=== PATIENT | male | born 1970 | race Caucasian/White ===

== ENCOUNTER 2017-10-03 09:34 | Emergency (ER) | payer OTHER, BC ==
[~2017-10-03] VITALS: Ht 172.7 cm; Wt 91.7 kg
[~2017-10-03 09:34] MED LIST: ALL180
[2017-10-03 09:38] VITALS: TEMP 37.2; O2SAT 96; Ht 172.7 cm; Wt 91.7 kg
[2017-10-03] MEDS ORDERED: HYDR12.56 PO (09:52)
[2017-10-03] MEDS ORDERED: LANS15CA6 PO (09:52)
[2017-10-03] MEDS ORDERED: AMOX250C3 PO (09:52)
[2017-10-03 10:02] LABS: PARTIAL THROMBOPLASTIN RATIO 0.9; PROTHROMBIN TIME (PATIENT) 10.4 SECONDS (9.0-12.0)
[2017-10-03 10:10] LABS: BASO % 0.3 %; BASO ABS # 0.02 K/uL (0-0.2); COMPLETE YES; EOS % 3.1 %; HEMATOCRIT 43.3 % (42-52); IG% 1.5 %; LYMPH % 29.6 %; LYMPH ABS # 2.19 K/uL (1.2-3.4); MEAN CELL VOLUME 88.2 fL (80-100); MEAN CORPUSCULAR HEMOGLOBIN 31.2 pg (25-34); MEAN CORPUSCULAR HGB CONC 35.3 g/dl (32-36); MEAN PLATELET VOLUME 10.1 fL (7.4-10.4); MONO % 6.3 %; NEUT % 59.2 %; PLATELET COUNT 170 K/uL (130-400); RED BLOOD COUNT 4.91 M/uL (4.7-6.1); WHITE BLOOD COUNT 7.41 K/uL (4.8-10.8)
--- NOTE | 2017-10-03 10:11 | EMERGENCY ROOM VISIT NOTE ---
History First contact with patient: 09:36 Chief Complaint: CHEST PAIN Stated Complaint: CHEST PRESSURE Nursing Triage Summary: Patient arrived via EMS from his work with complaints of chest pressure 6/10 that started around 0850 and was in the middle of his chest, denies radiation. +SOB, tingling in his hands, lightheaded, little nausea, diaphoretic & clammy when chest pressure was present. Denied LOC. "By the time ems arrived on scene, the chest pressure subsided to almost 0/10. EMS admin. 324mg PO Aspirin. History of Present Illness The patient is a 47 year old male who presents to the Emergency Room via EMS with complaints of chest pain that started this morning around 8:50 AM. Patient states that he was exerting himself when the chest pain started. He describes the chest pain as pressure and tightness, initially 6/10, in the middle of his chest, did not radiate, resolved after rest, currently 0/10. He believes the pain lasted about 20 minutes. He had associated shortness of breath , lightheadedness and feeling like he might pass out, nausea, diaphoretic and clammy, and tingling in his hands. He states all of these symptoms also resolved after the chest pressure resolved. Patient reports previous episodes of similar chest pressure during exertion, but states none this severe and has not had any recently. He has history of hypertension and GERD. He is a previous smoker, quit 25 years ago. He has a positive family history for heart disease. He denies any headache, neck pain, vision changes, syncope, palpitations, abdominal pain, vomiting, diarrhea or constipation, urinary symptoms, rash, leg pain or swelling, fever/chills. He does note that he is finishing up a prescription of amoxicillin to treat a sinus infection, which he states has been improving. Review of Systems A complete 10 point review of systems was reviewed with the patient with pertinent positives and negatives as per history of present illness. All else were negative. Past Medical/Surgical History HTN, GERD Social History Smoking Status: Former Smoker Alcohol Use: none Drug Use: none Marital Status: Housing Status: lives with family Occupation Status: employed Current/Historical Medications Scheduled Amoxicillin (Amoxil), Unknown Dose PO BID Hydrochlorothiazide (Hctz), Unknown Dose PO DAILY Lansoprazole (Prevacid), Unknown Dose PO DAILY Allergies Reviewed in chart Physical Exam Vital Signs Date Time Temp Pulse Resp B/P (MAP) Pulse Ox O2 Delivery O2 Flow Rate FiO2 10/03/17 14:30 97 18 133/90 99 Room Air 10/03/17 14:00 97 18 140/90 98 Room Air 10/03/17 13:25 99 10/03/17 13:00 98 16 121/88 97 Room Air 10/03/17 12:14 86 16 140/88 98 Room Air 10/03/17 11:19 98 18 145/94 98 Room Air 10/03/17 10:46 87 10/03/17 10:30 92 18 117/75 96 Room Air 10/03/17 09:42 96 Room Air 10/03/17 09:38 96 Room Air 10/03/17 09:38 37.2 99 22 126/93 96 Room Air Physical Exam CONSTITUTIONAL: No acute distress. Non-diaphoretic. Well appearing and well nourished. Alert and oriented X 4 with normal affect. HEENT: Normocephalic, atraumatic. Pupils equal, round and reactive to light, EOMI. TMs normal. Pharynx normal. Moist mucous membranes. NECK: Supple, full active range of motion without discomfort. RESPIRATORY: Clear to auscultation bilaterally with no wheezing, crackles, rhonchi or stridor. Equal expansion bilaterally. CARDIOVASCULAR: Regular rate and rhythm with no murmurs, rubs or gallops. Normal peripheral perfusion. No edema. CHEST WALL: No tenderness to palpation, no palpable crepitus. GASTROINTESTINAL: Soft, nontender, nondistended. Bowel sounds present in all quadrants. MUSCULOSKELETAL: Full range of motion of all joints without discomfort. No calf swelling or tenderness. INTEGUMENTARY: No rash or other significant dermatologic conditions noted. NEUROLOGIC: Cranial nerves II-XII grossly intact. No focal neurologic deficits noted. Normal strength, normal sensation, normal speech, normal gait. Medical Decision & Procedures ER Provider Diagnostic Interpretation: CHEST 2 VIEWS ROUTINE HISTORY: Atypical CHEST PAIN COMPARISON: None. FINDINGS: The lungs are clear. Cardiac silhouette is normal in size. No pleural effusions. No pneumothorax. IMPRESSION: No acute process. Laboratory Results 10/03/17 09:35 Red Blood Count 4.91, Mean Corpuscular Volume 88.2, Mean Corpuscular Hemoglobin 31.2, Mean Corpuscular Hemoglobin Concent 35.3, Mean Platelet Volume 10.1, Neutrophils (%) (Auto) 59.2, Lymphocytes (%) (Auto) 29.6, Monocytes (%) (Auto) 6.3, Eosinophils (%) (Auto) 3.1, Basophils (%) (Auto) 0.3, Neutrophils # (Auto) 4.39, Lymphocytes # (Auto) 2.19, Monocytes # (Auto) 0.47, Eosinophils # (Auto) 0.23, Basophils # (Auto) 0.02 10/03/17 09:35 Test 10/03/17 09:35 10/03/17 09:39 10/03/17 11:06 10/03/17 15:16 White Blood Count 7.41 K/uL (4.8-10.8) Red Blood Count 4.91 M/uL (4.7-6.1) Hemoglobin 15.3 g/dL (14.0-18.0) Hematocrit 43.3 % (42-52) Mean Corpuscular Volume 88.2 fL (80-100) Mean Corpuscular Hemoglobin 31.2 pg (25-34) Mean Corpuscular Hemoglobin Concent 35.3 g/dl (32-36) Platelet Count 170 K/uL (130-400) Mean Platelet Volume 10.1 fL (7.4-10.4) Neutrophils (%) (Auto) 59.2 % Lymphocytes (%) (Auto) 29.6 % Monocytes (%) (Auto) 6.3 % Eosinophils (%) (Auto) 3.1 % Basophils (%) (Auto) 0.3 % Neutrophils # (Auto) 4.39 K/uL (1.4-6.5) Lymphocytes # (Auto) 2.19 K/uL (1.2-3.4) Monocytes # (Auto) 0.47 K/uL (0.11-0.59) Eosinophils # (Auto) 0.23 K/uL (0-0.5) Basophils # (Auto) 0.02 K/uL (0-0.2) RDW Standard Deviation 42.7 fL (36.4-46.3) RDW Coefficient of Variation 13.3 % (11.5-14.5) Immature Granulocyte % (Auto) 1.5 % Immature Granulocyte # (Auto) 0.11 K/uL (0.00-0.02) Prothrombin Time 10.4 SECONDS (9.0-12.0) Prothromb Time International Ratio 1.0 (0.9-1.1) Activated Partial Thromboplast Time 24.3 SECONDS (21.0-31.0) Partial Thromboplastin Ratio 0.9 Anion Gap 8.0 mmol/L (3-11) Est Creatinine Clear Calc Drug Dose 91.8 ml/min Estimated GFR () 94.0 Estimated GFR (Non- 81.1 BUN/Creatinine Ratio 18.6 (10-20) Calcium Level 9.4 mg/dl (8.5-10.1) Total Bilirubin 0.6 mg/dl (0.2-1) Direct Bilirubin 0.1 mg/dl (0-0.2) Aspartate Amino Transf (AST/SGOT) 35 U/L (15-37) Alanine Aminotransferase (ALT/SGPT) 60 U/L (12-78) Alkaline Phosphatase 50 U/L (45-117) Creatine Kinase MB 4.1 ng/ml (0.5-3.6) Total Protein 7.5 gm/dl (6.4-8.2) Albumin 4.0 gm/dl (3.4-5.0) Lipase 186 U/L (73-393) Creatine Kinase MB Ratio (0-3.0) Troponin I < 0.015 ng/ml (0-0.045) Bedside Troponin I < 0.030 ng/ml (0-0.045) ECG Indication: chest pain Rate (beats per minute): 101 Rhythm: sinus tachycardia Findings: no ectopy Comparison ECG Date: no prior available Medical Decision CC: Patient presenting with complaint of chest pain Interpretation of Labs: No leukocytosis, no anemia, no significant electrolyte abnormalities, normal renal function, normal liver enzymes and lipase. Serial troponin levels x3 negative, CK-MB slightly elevated. Differential Diagnosis: Includes, but not limited to acute coronary syndrome, pulmonary embolism, aortic dissection, pneumothorax, pericarditis, anxiety, musculoskeletal pain, GERD, costochondritis, pneumonia, among others. Medication Reconciliation: I attest that I have personally reviewed the patient' s current medication list. Vital signs review: I reviewed the patient's vital signs and interpret them as follows: T: Afebrile; BP: Hypertensive; HR: Within normal limits; RR: Tachypneic; Pulse Ox: Within normal limits on room air. Blood pressure screening: The patient was found to have an elevated blood pressure and was referred to their primary doctor for recheck and further treatment. Summary: Patient was evaluated at bedside, history and physical exam performed. Patient is alert and oriented, in no acute distress, resting calmly in the stretcher. He currently denies any symptoms of chest pain or other associated symptoms that he had previously. He did receive full dose of aspirin by EMS. Heart and lung exam is normal, no edema noted. EKG reviewed at bedside, sinus tachycardia, no acute ischemic changes noted. Orders were placed at bedside for labs, CXR to evaluate for cardiopulmonary disease. Patient discussed with Dr. Nguyen, who agrees with my assessment and plan. Labs reviewed as above, unremarkable, initial and 90 minute troponin levels are negative Chest x-ray is clear. Low risk for PE by Well's Criteria, I have a low suspicion for PE at this time, given no ongoing symptoms of chest pain or SOB, and ACS seems more likely. Patient's calculated HEART score is 4, placing him at moderate risk. Given the exertional nature of his chest pain and his multiple risk factors, I feel the patient would benefit from admission for further workup of his chest pain. I spoke on the phone with Dr. Cartagena, [employer], who agreed that the patient would benefit from admission for observation, and probably plan for stress test on Sunday (due to the holiday tomorrow). I discussed plan for admission and stress test with the patient, he states he does not wish to be admitted, and will call his PCP to set up an appointment for stress test. He was willing to stay for 6-hour troponin rule out. He was advised of his risk factors, and states he will sign out AMA. This was discussed with Dr. Nguyen. 6-Hour troponin result is negative, and he has remained free of chest pain or other concerning symptoms during his time in the ED. Patient reassessed multiple times throughout ED stay, he remained comfortable and chest pain free. Blood pressure has improved, and HR is 82 on my reassessment. Admission was discussed and offered to the patient again, he states he still wishes to sign out AMA. I did discuss risk factors of leaving without continued medical care, including worsening condition, permanent disability, and . The patient verbalized understanding of this, and reiterated that he wishes to sign out AMA, and signed the form, with his as witness. Patient was in stable condition and ambulatory at time of discharge. Head Trauma GCS Score: 15 Medication Reconcilliation Current Medication List: was personally reviewed by me Blood Pressure Screening Patient's blood pressure: Elevated blood pressure Blood pressure disposition: Referred to PCP Impression Primary Impression: Exertional chest pain Departure Information Dispostion Home / Self-Care Condition GOOD Referrals Can Zuleta, D.O. (PCP) Patient Instructions ED Chest Pain Angina Stable, ED Heart Disease Risk Factors, My [facility] Additional Instructions You have chosen to sign out AGAINST MEDICAL ADVICE today. Please follow-up with your primary care provider in the next 1-2 days, and discuss scheduling a cardiac stress test as soon as possible. Minimize your exertion levels as much as possible until you have follow up with your primary care provider. Please return to the emergency department immediately for any return or worsening symptoms, including chest pain, shortness of breath, dizziness or passing out, palpitations, persistent vomiting, vomiting or coughing up blood, fever/chills, or any other concerns.
[2017-10-03 10:14] LABS: ALT/SGPT 60 U/L (12-78); BLOOD UREA NITROGEN 20 mg/dl (7-18); BUN/CREATININE RATIO 18.6 (10-20); CALCIUM 9.4 mg/dl (8.5-10.1); CARBON DIOXIDE 26 mmol/L (21-32); CREATININE 1.07 mg/dl (0.60-1.40); GLUCOSE 138 mg/dl (70-99)
--- NOTE | 2017-10-03 10:14 | DIAGNOSTIC IMAGING REPORT ---
CHEST 2 VIEWS ROUTINE HISTORY: Atypical CHEST PAIN COMPARISON: None. FINDINGS: The lungs are clear. Cardiac silhouette is normal in size. No pleural effusions. No pneumothorax. IMPRESSION: No acute process. Electronically signed by: Jasper Valladares M.D. 10/03/2017 10:13 AM Dictated Date/Time: 10/03/2017 10:09 AM
[2017-10-03 10:16] LABS: AST/SGOT 35 U/L (15-37)
[2017-10-03 10:24] LABS: CHLORIDE 105 mmol/L (98-107); POTASSIUM 3.8 mmol/L (3.5-5.1); SODIUM 139 mmol/L (136-145)
[2017-10-03 10:36] LABS: ALKALINE PHOSPHATASE 50 U/L (45-117)
[2017-10-03 15:48] VITALS: BP 156/97; PULSE 93; O2SAT 95
== END 2017-10-03 15:50 | disposition left against medical advice (07) ==
LOC: EDBD 09:34 → C.EDB 09:34
DX: R07.9 Chest pain, unspecified (principal); I10 Essential (primary) hypertension; K21.9 Gastro-esophageal reflux disease without esophagitis; Z87.891 Personal history of nicotine dependence; Z79.899 Other long term (current) drug therapy